=== PATIENT | female | born 1995 | race Asian ===

== ENCOUNTER 2020-06-20 19:33 | Emergency (ER) | payer SELFPAY ==
[~2020-06-20] VITALS: Ht 157.5 cm; Wt 65.9 kg
[2020-06-20] MEDS ORDERED: LORAZEPAM 2MG/ML CPJ IV ONE (20:45)
[2020-06-20] MEDS ORDERED: LORAZEPAM 2MG/ML CPJ IV PRN (20:45)
[2020-06-20] MEDS ORDERED: SODIUM CHLORIDE 0.9% 1,000 ML IV ONE (20:45)
[2020-06-20 20:57] LABS: BASOPHILS % 0.3 % (0.0-2.0); HEMATOCRIT. 39.4 % (36.0-48.0); HEMOGLOBIN. 13.6 g/dL (12.0-16.0); LYMPHOCYTES % 15.2 % (20.0-50.0); MEAN CORPUSCULAR HEMOGLOBIN 29.3 pg (28.0-32.0); MEAN CORPUSCULAR VOLUME 84.8 fL (81.0-99.0); MEAN PLATELET VOLUME 8.3 fl (7.4-10.4); MONOCYTES % 6.7 % (2.0-8.0); NEUTROPHILS % 77.8 % (40.0-76.0); PLATELET 420 x1000/uL (130-400); RED BLOOD CELL COUNT 4.65 mill/uL (4.2-5.4); RED CELL DISTRIBUTION WIDTH 13.4 % (11.6-14.6)
[2020-06-20 21:11] LABS: CHLORIDE 100 mEq/L (98-107)
[2020-06-20 22:59] VITALS: BP 115/70
[2020-06-20 23:00] LABS: CLARITY URINE CLEAR (CLEAR); COLOR URINE YELLOW (YELLOW); KETONES URINE 3+ (NEGATIVE); LEUKOCYTE ESTERASE URINE NEGATIVE (NEGATIVE); NITRITE URINE NEGATIVE (NEGATIVE); OCCULT BLOOD URINE NEGATIVE (NEGATIVE); PH URINE 6.5 (4.5-8.0); PROTEIN URINE 1+ (NEGATIVE); SPECIFIC GRAVITY URINE 1.025 (1.005-1.030); UROBILINOGEN URINE 0.2 E.U./dL (0.2-1.0)
== END 2020-06-20 23:35 | disposition home or self-care (01) ==
LOC: ER 19:33
DX: F41.9 Anxiety disorder, unspecified (principal); Z20.822 Contact with and (suspected) exposure to COVID-19
CPT/HCPCS: 36415; 80053; 81003; 81025; 83690; 84484; 85025; 87635; 93005; 96361; 96374; 99284; C9803; J2060; J7030